=== PATIENT | male | born 1985 | race Caucasian/White ===

== ENCOUNTER 2019-09-15 17:54 | Emergency (ER) | payer OTHER, SELFPAY ==
[2019-09-15 17:56] VITALS: BP 152/79; PULSE 82; RESP 18; TEMP 36.9; O2SAT 99; BMI 21.7
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
[2019-09-15 19:32] VITALS: BP 125/75; PULSE 85; RESP 15; O2SAT 98
== END 2019-09-15 19:33 | disposition home or self-care (01) ==
PROVIDERS: Emergency Provider Internal Medicine
DX: S13.4XXA Sprain of ligaments of cervical spine, initial encounter (principal); V43.52XA Car driver injured in collision with other type car in traffic accident, initial encounter
CPT/HCPCS: 99281

== ENCOUNTER 2024-08-20 04:09 | Emergency (ER) | payer OTHER, SELFPAY ==
[2024-08-20 04:27] VITALS: BP 109/70; PULSE 104; RESP 18; O2SAT 96; BMI 21.7
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
[2024-08-20] MEDS: TET,DIPH,PERTUSS(ACELL),VAC/PF 0.5 ML SYRINGE IM (05:50)
== END 2024-08-20 06:22 | disposition home or self-care (01) ==
PROVIDERS: Emergency Provider Emergency Medicine
DX: S00.81XA Abrasion of other part of head, initial encounter (principal); S16.1XXA Strain of muscle, fascia and tendon at neck level, initial encounter; W10.9XXA Fall (on) (from) unspecified stairs and steps, initial encounter; Z23 Encounter for immunization
CPT/HCPCS: 70450; 72125; 90471; 99283; 99284; 90715